=== PATIENT | female | born 1985 | race Caucasian/White ===

== ENCOUNTER → 2018-08-11 15:16 | Outpatient (CLI) | payer BC, SELFPAY ==
[2018-08-14 17:51] LABS: QuantiFERON-TB Gold Plus Negative (Negative)
== END ==
PROVIDERS: Visit Provider Nurse Practitioner
DX: Z11.1 Encounter for screening for respiratory tuberculosis (principal)
CPT/HCPCS: 36415; 86480

== ENCOUNTER 2024-06-06 13:10 | Outpatient (CLI) | payer BC, SELFPAY ==
[2024-06-09 07:15] LABS: Pancreatic Elastase, Fecal >800 (>200)
[2024-06-09 08:16] LABS: Calprotectin, Fecal 22 ug/g (0-120)
== END 2024-06-06 23:59 | disposition home or self-care (01) ==
LOC: LAB.DROPOF 13:12
PROVIDERS: PCP Family Medicine; Visit Provider Nurse Practitioner Family
DX: R14.0 Abdominal distension (gaseous) (principal); R19.5 Other fecal abnormalities
CPT/HCPCS: 82656; 83993

== ENCOUNTER 2024-07-28 11:08 | Day surgery (SDC) | payer BC, SELFPAY ==
[2024-07-23 13:53] VITALS: BMI 21.7
[2024-07-28 11:42] VITALS: BP 120/81; PULSE 64; RESP 18; TEMP 36.5; O2SAT 99
[2024-07-28] MEDS: LACTATED RINGERS 1000ML 1,000 ML 50 ML IV (11:58)
[2024-07-28 12:04] LABS: Urine Pregnancy, HCG Qual. Negative (Negative)
--- NOTE | 2024-07-28 12:18 | P.PNANES_ITS ---
[facility] Disclaimer: The information contained in this section may have been updated after the patient was seen, as this information can be updated by other users. Medical History No significant past medical history Surgical History History of spinal fusion Family History Grandmother Colon cancer Father No problems noted. Sister Ulcerative colitis Other Family history of CHF (congestive heart failure) Social History (Updated 07/28/24 @ 11:43 by Adela Solo RN) Smoking Status: Never smoker alcohol intake: never substance use type: denies use current occupational status: employed Travel in the last 8 weeks?: None caffeine: No Have you lived/traveled outside [place] in past 30 days?: No Contact w/someone who lives/traveled outside US past 30 days?: No Exposure to someone with infectious disease in past 14 days?: No Do you have a fever (greater than 100.4 F or 38 C)?: No Have you tested positive for COVID-19?: Yes Exposed to someone with COVID-19 in past 14 days?: No Do you have a sore throat?: No Do you have a cough?: No Do you have any weakness?: No Are you experiencing any nausea/vomitting?: No Do you have any diarrhea?: No Are you experiencing any unusual bleeding?: No Do you have any muscle aches/pain?: No Do you have any abdominal pain?: No Are you experiencing loss of taste or smell?: No [facility] Anesthesia Checklist Patient Identification Patient Identification: Arm Band Structural Data Admitted From: Home Planned Operative Procedure/s: EGD Consent for Planned Operative Procedure(s) Verified: Yes Verified Documents: Surgical Consent and History and Physical NPO Status Verified Time NPO: 00:00 Additional verifications Anesthesia Reactions: No Airway Assessment Mallampati Score:: Class II C-Spine Mobility Assessed: Yes TMJ Mobility Assessed: Yes Dentition: Good Dentition Neurological Assessment Level of Consciousness: Awake, Alert and Appropriate Anesthesia Plan Anesthesia Risk discussed: Yes Anesthesia Plan: Verified ASA Class: I Anesthesia Type: MAC
[2024-07-28 12:58] VITALS: BP 106/62; PULSE 65; RESP 18; TEMP 36.2; O2SAT 97
[2024-07-28 13:08] VITALS: BP 109/69; PULSE 75; RESP 18; O2SAT 98
[2024-07-28 13:18] VITALS: BP 118/60; PULSE 61; RESP 18; O2SAT 98
[2024-07-28 13:28] VITALS: BP 119/78; PULSE 65; RESP 18; O2SAT 98
[2024-07-28 13:38] VITALS: BP 109/87; PULSE 53; RESP 18; O2SAT 97
--- NOTE | 2024-07-28 22:20 | EXP.HP ---
History of Present Illness *Admission Date: 07/28/24 *Reason for visit:: Epigastric abdominal pain/dyspepsia *History of present illness: Mrs. Choi is a 38-year-old female who is here for diagnostic upper endoscopy secondary to dyspepsia. She was having epigastric abdominal pain, nausea, vomiting, heartburn and reflux. She also has had some bloating and left upper quadrant abdominal pain. The examination is deemed medically necessary for diagnostic EGD. The patient has been seen, interviewed and examined prior to the procedure by both myself and the anesthesia provider. [facility] Disclaimer: The information contained in this section may have been updated after the patient was seen, as this information can be updated by other users. Medical History (Updated 07/28/24 @ 22:22 by Jeffrey Lagunas II, MD) No significant past medical history Surgical History History of spinal fusion Family History Grandmother Colon cancer Father No problems noted. Sister Ulcerative colitis Other Family history of CHF (congestive heart failure) Social History (Updated 07/28/24 @ 11:43 by Adela Solo RN) Smoking Status: Never smoker alcohol intake: never substance use type: denies use current occupational status: employed Travel in the last 8 weeks?: None caffeine: No Have you lived/traveled outside [place] in past 30 days?: No Contact w/someone who lives/traveled outside [place] past 30 days?: No Exposure to someone with infectious disease in past 14 days?: No Do you have a fever (greater than 100.4 F or 38 C)?: No Have you tested positive for COVID-19?: Yes Exposed to someone with COVID-19 in past 14 days?: No Do you have a sore throat?: No Do you have a cough?: No Do you have any weakness?: No Are you experiencing any nausea/vomitting?: No Do you have any diarrhea?: No Are you experiencing any unusual bleeding?: No Do you have any muscle aches/pain?: No Do you have any abdominal pain?: No Are you experiencing loss of taste or smell?: No Review of Systems Review of Systems Review of systems (narrative): Negative *Cardiovascular Comments: Negative *Gastrointestinal Comments: Negative *Genitourinary Comments: Negative *Musculoskeletal Comments: Negative *Neurologic Comments: Negative Meds Home Medications and Allergies Home Medications ?Medication ?Instructions ?Recorded ?Confirmed ?Type escitalopram oxalate 10 mg tablet 10 mg PO DAILY 06/03/24 07/28/24 History lisdexamfetamine 40 mg capsule 40 mg PO DAILY 06/03/24 07/28/24 History (Vyvanse) methocarbamol 750 mg tablet 750 mg PO DAILY 06/03/24 07/28/24 History ondansetron 4 mg disintegrating 4 mg PO DAILY PRN Nausea 06/03/24 07/28/24 History tablet New Prescriptions to Start Prescriptions: Allergies Allergy/AdvReac Type Severity Reaction Status Date / Time No Known Allergies Allergy Verified 07/28/24 11:40 Exam Data for Last 24 hours Vital signs and Labs for Last 24 Hours: Temp Pulse Resp BP Pulse Ox O2 Del Method 97.1 F L 53 L 18 109/87 L 97 Room Air 07/28/24 12:58 07/28/24 13:38 07/28/24 13:38 07/28/24 13:38 07/28/24 13:38 07/28/24 13:38 Laboratory Results - last 24 hr 07/28/24 11:46: Urine HCG, Qual Negative *Routine HEENT Exam Head: Present normocephalic Eye: Present EOMI and PERRL ENT: Present mucous membranes moist *Routine Neck Exam Neck: Present supple *Routine Respiratory Exam Respiratory: Present CTA bilaterally *Routine Cardiovascular Exam Cardiovascular: Present RRR *Routine Abdominal Exam Abdominal: Present soft and normoactive bowel sounds; Absent tenderness *Routine Rectal Exam Rectal:: deferred *Routine Genitalia Exam Genitalia:: deferred *Routine Extremities Exam Extremities: Absent cyanosis, clubbing or edema *Routine Skin Exam Skin: Present warm; Absent rash *Routine Neurological Exam Neurological: Present alert and oriented X3 Assessment and Plan *Assessment and plan (1) Epigastric pain: Status: Acute Category: Medical Code(s): R10.13 - Epigastric pain (2) Nausea & vomiting: Status: Acute Category: Medical Code(s): R11.2 - Nausea with vomiting, unspecified (3) Bloating: Status: Acute Category: Medical Code(s): R14.0 - Abdominal distension (gaseous) (4) Heartburn: Status: Acute Category: Medical Code(s): R12 - Heartburn (5) LUQ pain: Status: Acute Category: Medical Code(s): R10.12 - Left upper quadrant pain (6) Early satiety: Status: Acute Category: Medical Code(s): R68.81 - Early satiety Plan A/P: 1. Epigastric abdominal pain/dyspepsia with nausea, vomiting, bloating and early satiety. She has had some left upper quadrant abdominal pain and intermittent mild heartburn. This is the preprocedural diagnosis. The patient will be anesthetized/sedated using MAC sedation. The patient has been seen and examined. Cardiac and lung assessment prior to the examination is stable. Proceed with planned diagnostic EGD.
--- NOTE | 2024-07-28 22:22 | HMH.PROCNOTE ---
[facility] Procedure Note Date: 07/28/24 Time: 22:23 Procedure Note:: Upper Endoscopy Procedure Report: Esophagogastroduodenoscopy with cold biopsies Endoscopost: Jeffrey Lagunas II, MD Referring Physician: Malik Fisher MD, [address] [facility], [place] [address] Date of Procedure: July 28, 2024 Equipment: Olympus GIF 190 standard upper endoscope Sedation: MAC sedation Indications: Mrs. Choi is a 38-year-old female who reports epigastric abdominal pain, nausea and vomiting. She has had 2 very bad bouts and in between does report ongoing epigastric discomfort. She had a bout in May 2024. She does report a lot of bloating and belching when this occurs. She does have some early satiety and attributes this to Vyvanse. She has some minor heartburn. She reports no significant reflux or dysphagia. She reports mostly regular bowel movements but does have some variability with hard stools and sometimes soft soft stools but no loose stools or diarrhea. Her bowel movements are always formed. She reports no melena or hematochezia. During the more significant bouts she went to the ED and received a GI cocktail which gave her relief. She did have a CAT scan in the emergency department which was unremarkable. She has tried and failed Zofran, dicyclomine, hydrocodone, Pepcid, Prilosec and Tums. She does report that her paternal aunt had ulcerative colitis and her maternal grandmother had colon cancer she in her 50s. Procedure: Prior to the procedure, a history and physical exam was performed, and patient's medications and allergies were reviewed. The risks, benefits and alternatives of the sedation and procedure were discussed with the patient. All questions were answered and informed consent was obtained. The patient was brought to the procedure room. Patient identification and proposed procedure were verified by the physician and the nurse. The patient was placed in a left lateral decubitus position and the scope was passed under direct vision. Throughout the procedure, the patient's blood pressure, pulse, and oxygen saturations were monitored continuously. The upper GI endoscopy was accomplished without difficulty. The patient tolerated the procedure well. Findings: The scope was passed directly into the upper esophagus and advanced to the fourth portion of duodenum and proximal jejunum. Cold biopsies were taken x 4 of the proximal jejunum for the disaccharidase assay. The proximal jejunum, post bulbar duodenum, ampulla and duodenal bulb were normal with normal mucosa and conniventes. Cold biopsies were taken from the duodenum to rule out celiac disease. The scope was withdrawn through a normal duodenal bulb and pylorus into the stomach. There was very mild linear antral gastropathy/reactive gastropathy and biopsies were taken from the antrum. The body and fundus of the stomach were normal and upon retroflexion there was no hiatal hernia. The scope was then withdrawn into the esophagus. There was no evidence of reflux esophagitis or Parra's. The remainder of the esophageal mucosa was normal. Impression: 1. 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 I will follow-up with biopsies. I have recommended dietary measures and Iberogast twice daily. I do feel that she is failed several treatments and I would at this point recommend neuromodulation with buspirone. I would like for her to follow-up in the office in 2 to 3 months with myself or Ruma MCKEON. I will check biopsies for disaccharidase deficiency and if this is normal, I would recommend a broad digestive enzyme.
[2024-08-03 16:12] LABS: Disclaimer Notes (.); Interpretation Notes (.); Lactase 1.86 (>/= 14.0); Maltase 249.45 (>/= 110.0); Palatinase 17.17 (>/= 8.5); Reference Notes (.); Sucrase 56.26 (>/= 25.0)
== END 2024-07-28 13:38 | disposition home or self-care (01) ==
PROVIDERS: PCP Family Medicine; Visit Provider Internal Medicine Gastroenterology
PROC: 0DJ08ZZ Inspection of Upper Intestinal Tract, Via Natural or Artificial Opening Endoscopic (ICD-10-PCS; CPT 43239; principal; 2024-07-28 13:00)
DX: K31.89 Other diseases of stomach and duodenum (principal); R14.0 Abdominal distension (gaseous); R68.81 Early satiety; K30 Functional dyspepsia; Z83.79 Family history of other diseases of the digestive system; Z80.0 Family history of malignant neoplasm of digestive organs; Z79.899 Other long term (current) drug therapy; R10.13 Epigastric pain
CPT/HCPCS: 43239; 81025; 82657; J7120